=== PATIENT | male | born 1960 | race Caucasian/White ===

== ENCOUNTER 2021-02-16 09:33 | Emergency (ER) | payer OTHER ==
[2021-02-16 10:20] LABS: Absolute Lymphocytes (CBC) 1.4 K/uL (0.7-4.9); Basophils % 0.8 % (0-1.3); Hematocrit 37.1 % (39.6-49.0); Lymphocytes % 15.8 % (15.3-44.8); MPV 8.6 fL (7.6-11.3); RBC Red Blood Cell Count 4.22 M/uL (4.33-5.43)
[2021-02-16 10:41] LABS: Albumin 3.9 g/dL (3.4-5.0); Bilirubin Total 0.7 mg/dL (0.2-1.0); Potassium 4.3 mmol/L (3.5-5.1); Protein, Total 7.6 g/dL (6.4-8.2)
[2021-02-16] MEDS ORDERED: ONDANSETRON 4 MG/2 ML VIAL ONE (10:44)
[2021-02-16] MEDS ORDERED: HYDROMORPHONE HCL 1 MG/ML INJ ONE (10:44)
[2021-02-16] MEDS ORDERED: DIAZEPAM 10 MG/2 ML INJ SYRINGE ONE (10:45)
--- NOTE | 2021-02-16 11:03 | RAD REPORT ---
EXAM DESCRIPTION: MRI - C Spine Wo Cont - 02/16/2021 10:54 am CLINICAL HISTORY: Pain COMPARISON: None. TECHNIQUE: Sagittal T1-weighted, T2-weighted and T2-STIR sequences were obtained as well as axial T2 medic sequence obtained. FINDINGS: 2 millimeters of retrolisthesis of C4 on C5.Cervical vertebral bodies are normal in height and alignment. Mild endplate edema is present at the C4 level. Cerebellar tonsils and mid-line skull base show no suspicious finding. No significant finding at the C1 and C2 levels. C2-3 level: No significant findings. C3-4 level: Uncovertebral joint hypertrophy which is eccentric to the right results in moderate right and mild left neural foraminal narrowing. No central spinal stenosis . C4-5 level: Posterior disc osteophyte complex with uncovertebral joint hypertrophy results in severe left and mild right neural foraminal narrowing. The posterior disc osteophyte complex contacts the ve ntral aspect of the cord resulting in mild central spinal stenosis. C5-6 level: Posterior disc osteophyte complex with uncovertebral joint hypertrophy results in moderat e right and mild left neural foraminal narrowing. C7-T1 level: No significant findings. Cervical cord shows no focal narrowing, expansion or signal abnormality. IMPRESSION: Multilevel cervical spondylosis with varying degrees of neural foraminal narrowing as no brenda above. Mild central spinal stenosis is noted at the C4-5 level.
--- NOTE | 2021-02-16 11:26 | EDPHYS ---
Physician Documentation [facility] Name: Geovany Madrigal Age: 60 yrs Sex: Male : 1960 Arrival Date: 02/16/2021 Time: 09:42 Bed 19 Private MD: ED Physician Kulwinder Lynn HPI: 02/16 10:12 This 60 yrs old Unknown Male presents to ER via Ambulatory with complaints of Neck ma2 Pain, <24hrs Old. 10:12 The patient or guardian complains of pain, that is chronic. Onset: The symptoms/episode ma2 began/occurred suddenly, gradually, 1 day(s) ago. Associated signs and symptoms: Pertinent negatives: chills, constipation, fever, headache, bladder incontinence, bowel incontinence, nausea, numbness, tingling, vomiting, weakness. Severity of symptoms: At their worst the symptoms were moderate, in the emergency department the symptoms are unchanged. The patient has experienced similar episodes in the past. Historical: - Allergies: 09:51 No Known Allergies; ll1 - PMHx: 09:51 Hypertensive disorder; Hypothyroidism; ll1 - PSHx: 09:51 2 spine SX; ll1 - Immunization history:: Client reports receiving the 2nd dose of the Covid vaccine. - Social history:: Smoking status: Patient denies any tobacco usage or history of. Patient/guardian denies using alcohol, street drugs, The patient lives with family. - Family history:: not pertinent. - Hospitalizations: : No recent hospitalization is reported. ROS: 10:12 Constitutional: Negative for fever, chills, and weight loss. ma2 10:12 All other systems are negative. 10:12 Eyes: Negative for injury, pain, redness, and discharge, ENT: Negative for injury, ma2 pain, and discharge, Neck: Negative for injury, pain, and swelling, Cardiovascular: Negative for chest pain, palpitations, and edema, Respiratory: Negative for shortness of breath, cough, wheezing, and pleuritic chest pain, Abdomen/GI: Negative for abdominal pain, nausea, diarrhea, and constipation, Back: Negative for injury and pain, MS/Extremity: Negative for injury and deformity, Skin: Negative for injury, rash, and discoloration, Neuro: Negative for headache, weakness, numbness, tingling, and seizure, Psych: Negative for depression, anxiety, suicide ideation, homicidal ideation, and hallucinations, Allergy/Immunology: Negative for hives, rash, and allergies, Endocrine: Negative for neck swelling, polydipsia, polyuria, polyphagia, and marked weight changes. Exam: 10:12 Constitutional: This is a well developed, well nourished patient who is awake, alert, ma2 and in no acute distress. Head/Face: Normocephalic, atraumatic. Eyes: Pupils equal round and reactive to light, extra-ocular motions intact. Lids and lashes normal. Conjunctiva and sclera are non-icteric and not injected. Cornea within normal limits. Periorbital areas with no swelling, redness, or edema. ENT: Nares patent. No nasal discharge, no septal abnormalities noted. Tympanic membranes are normal and external auditory canals are clear. Oropharynx with no redness, swelling, or masses, exudates, or evidence of obstruction, uvula midline. Mucous membranes moist. Neck: Trachea midline, no thyromegaly or masses palpated, and no cervical lymphadenopathy. Supple, full range of motion without nuchal rigidity, or vertebral point tenderness. No Meningismus. Chest/axilla: Normal chest wall appearance and motion. Nontender with no deformity. No lesions are appreciated. Cardiovascular: Regular rate and rhythm with a normal S1 and S2. No gallops, murmurs, or rubs. Normal PMI, no JVD. No pulse deficits. Respiratory: Lungs have equal breath sounds bilaterally, clear to auscultation and percussion. No rales, rhonchi or wheezes noted. No increased work of breathing, no retractions or nasal flaring. Abdomen/GI: Soft, non-tender, with normal bowel sounds. No distension or tympany. No guarding or rebound. No evidence of tenderness throughout. Back: No spinal tenderness. No costovertebral tenderness. Full range of motion. Skin: Warm, dry with normal turgor. Normal color with no rashes, no lesions, and no evidence of cellulitis. MS/ Extremity: Pulses equal, no cyanosis. Neurovascular intact. Full, normal range of motion. Neuro: Awake and alert, GCS 15, oriented to person, place, time, and situation. Cranial nerves II-XII grossly intact. Motor strength 5/5 in all extremities. Sensory grossly intact. Cerebellar exam normal. Normal gait. Vital Signs: 09:49 BP 188 / 101; Pulse 60; Resp 16; Temp 97.3; Pulse Ox 100% ; Weight 83.91 kg; Height 5 ll1 ft. 10 in. (177.80 cm); Pain 6/10; 09:59 BP 188 / 101; Pulse 60; Resp 16; Temp 97.3; Pulse Ox 100% on R/A; Weight 83.46 kg; jw6 Height 5 ft. 10 in. (177.80 cm); Pain 10; 11:05 BP 160 / 98; Pulse 98; Pulse Ox 100% on R/A; jw6 09:59 Body Mass Index 26.40 (83.46 kg, 177.80 cm) jw6 MDM: 09:46 Patient medically screened. [facility] 10:12 Differential diagnosis: arthritis, Cervical Disc Herniation cervical strain, Unstable ma2 Vertebral Fracture. 11:25 Data reviewed: vital signs, nurses notes. Counseling: I had a detailed discussion with il2 the patient and/or guardian regarding: the historical points, exam findings, and any diagnostic results supporting the discharge/admit diagnosis, the presence of at least one elevated blood pressure reading (>120/80) during this emergency department visit, the need for outpatient follow up. Response to treatment: the patient's symptoms have markedly improved after treatment. 02/16 10:07 Order name: CBC with Diff; Complete Time: 11:08 [facility] 02/16 10:07 Order name: CMP; Complete Time: 11:08 [facility] 02/16 10:08 Order name: C Spine Wo Cont; Complete Time: 11:08 EDMS Administered Medications: 10:28 Drug: Dilaudid (HYDROmorphone) 1 mg Route: IVP; Site: right antecubital; jw6 10:28 Follow up: Response: No adverse reaction jw6 10:28 Drug: Zofran (Ondansetron) 4 mg Route: IVP; Site: right antecubital; jw6 10:28 Follow up: Response: No adverse reaction jw6 10:28 Drug: Valium (diazepam) 5 mg Route: IVP; Site: right antecubital; jw6 10:28 Follow up: Response: No adverse reaction jw6 Disposition Summary: 02/16/21 11:26 Discharge Ordered Location: Home ma2 Condition: Stable ma2 Diagnosis - Spinal stenosis, cervical region ma2 Followup: ma2 - With: Private Physician - When: Tomorrow - Reason: Continuance of care Discharge Instructions: - Discharge Summary Sheet ma2 - Spinal Stenosis ma2 Forms: - Medication Reconciliation Form ma2 - Thank You Letter ma2 - Antibiotic Education ma2 - Prescription Opioid Use ma2 Prescriptions: - Medrol (Terrence) 4 mg Oral Tablets, Dose Pack - take 1 tablet by ORAL route as directed - follow package instructions; 1 ma2 packet; Refills: 0, Product Selection Permitted - Valium 5 mg Oral Tablet - take 1 tablet by ORAL route every 8 hours As needed; 20 tablet; Refills: 0, ma2 Product Selection Permitted - Diclofenac Sodium 75 mg Oral Tablet Sustained Release - take 1 tablet by ORAL route 2 times per day; 30 tablet; Refills: 0, Product ma2 Selection Permitted Signatures: Dispatcher [employer] EDMS Kulwinder Lynn MD MD ma2 Reza Cardozo RN RN 1 Barb Mooney [facility]
--- NOTE | 2021-02-16 11:26 | ER ---
Nurse's Notes [facility] Name: Geovany Madrigal Age: 60 yrs Sex: Male : 1960 Arrival Date: 02/16/2021 Time: 09:42 Bed 19 Private MD: Diagnosis: Spinal stenosis, cervical region Presentation: 02/16 09:49 Chief complaint: Patient states: Neck pain and spasms, worse than his usual pain. ll1 Unable to turn neck, no fever. Coronavirus screen: Vaccine status: Patient reports receiving the 2nd dose of the covid vaccine. Client denies travel out of the [place] in the last 14 days. At this time, the client does not indicate any symptoms associated with coronavirus-19. Ebola Screen: Patient denies travel to an Ebola-affected area in the 21 days before illness onset. Acute neurological deficit: none identified. Initial Sepsis Screen: Does the patient meet any 2 criteria? No. Patient's initial sepsis screen is negative. Does the patient have a suspected source of infection? Yes: Bone or joint infection. Risk Assessment: Do you want to hurt yourself or someone else? Patient reports no desire to harm self or others. Onset of symptoms was February 15, 2021. 09:49 Method Of Arrival: Ambulatory ll1 09:49 Acuity: LILLIAN 3 ll1 Triage Assessment: 09:57 General: Appears uncomfortable, Behavior is cooperative. Pain: Complains of pain in jw6 posterior cervical area Pain does not radiate. Pain currently is 10 out of 10 on a pain scale. EENT: No deficits noted. Neuro: No deficits noted. Cardiovascular: No deficits noted. Respiratory: No deficits noted. GI: No deficits noted. : No deficits noted. Derm: No deficits noted. Musculoskeletal: No deficits noted. Historical: - Allergies: 09:51 No Known Allergies; ll1 - PMHx: 09:51 Hypertensive disorder; Hypothyroidism; ll1 - PSHx: 09:51 2 spine SX; ll1 - Immunization history:: Client reports receiving the 2nd dose of the Covid vaccine. - Social history:: Smoking status: Patient denies any tobacco usage or history of. Patient/guardian denies using alcohol, street drugs, The patient lives with family. - Family history:: not pertinent. - Hospitalizations: : No recent hospitalization is reported. Screenin:00 Abuse screen: Denies threats or abuse. Denies injuries from another. Nutritional jw6 screening: No deficits noted. Tuberculosis screening: No symptoms or risk factors identified. Fall Risk IV access (20 points). Assessment: 10:00 General: Appears uncomfortable, Behavior is calm, cooperative. Pain: Complains of pain jw6 in posterior cervical area. Neuro: Level of Consciousness is awake, alert, obeys commands, Oriented to person, place, time, situation, Supervisor Case Loading are equal bilaterally Moves all extremities. Full function Gait is steady, Speech is normal, Facial symmetry appears normal, Pupils are PERRLA, Intact Babinski. Cardiovascular: No deficits noted. Respiratory: No deficits noted. GI: No deficits noted. : No deficits noted. EENT: No deficits noted. Derm: No deficits noted. Musculoskeletal: No deficits noted. Vital Signs: 09:49 BP 188 / 101; Pulse 60; Resp 16; Temp 97.3; Pulse Ox 100% ; Weight 83.91 kg; Height 5 ll1 ft. 10 in. (177.80 cm); Pain 6/10; 09:59 BP 188 / 101; Pulse 60; Resp 16; Temp 97.3; Pulse Ox 100% on R/A; Weight 83.46 kg; jw6 Height 5 ft. 10 in. (177.80 cm); Pain 10/10; 11:05 BP 160 / 98; Pulse 98; Pulse Ox 100% on R/A; jw6 09:59 Body Mass Index 26.40 (83.46 kg, 177.80 cm) jw6 ED Course: 09:42 Patient arrived in ED. as 09:45 Kulwinder Lynn MD is Attending Physician. ma2 09:49 Arm band placed on Patient placed in an exam room, on a stretcher. ll1 09:51 Triage completed. ll1 09:57 Barb Mooney is Primary Nurse. jw6 10:00 Patient has correct armband on for positive identification. Bed in low position. Call jw6 light in reach. Side rails up X 1. 10:00 No provider procedures requiring assistance completed. jw6 10:04 Inserted saline lock: 20 gauge in right antecubital area, using aseptic technique. gd 10:53 C Spine Wo Cont In Process Unspecified. EDMS Administered Medications: 10:28 Drug: Dilaudid (HYDROmorphone) 1 mg Route: IVP; Site: right antecubital; jw6 10:28 Follow up: Response: No adverse reaction jw6 10:28 Drug: Zofran (Ondansetron) 4 mg Route: IVP; Site: right antecubital; jw6 10:28 Follow up: Response: No adverse reaction jw6 10:28 Drug: Valium (diazepam) 5 mg Route: IVP; Site: right antecubital; jw6 10:28 Follow up: Response: No adverse reaction jw6 Outcome: 11:26 Discharge ordered by MD. arredondo 11:37 Patient left the ED. jw6 Signatures: Dispatcher [employer] EDMS Marie Au Mohammad, MD MD ma2 Reza Cardozo RN RN Anuj Mccallum Jessica jw6
[2021-02-16 11:46] VITALS: TEMP 97.3; O2SAT 100
[2021-02-16 11:49] VITALS: BP 160/98
== END 2021-02-16 11:37 | disposition home or self-care (01) ==
LOC: ER 09:33
DX: M48.02 Spinal stenosis, cervical region (principal); I10 Essential (primary) hypertension
CPT/HCPCS: 85025; 36415; 80053; 72141; 96375; 96374; 99283; J3360; J1170; J2405

== ENCOUNTER 2023-10-16 10:25 | Day surgery (SDC) | payer OTHER ==
[2023-10-15 09:01] LABS: Absolute Basophils 0.1 K/uL (0-0.5); Absolute Eosinophils 0.2 K/uL (0-0.5); Absolute Lymphocytes (CBC) 1.7 K/uL (0.7-4.9); Absolute Monocytes 0.6 K/uL (0.1-1.3); Absolute Neutrophil 3.2 K/uL (1.8-8.0); Basophils % 1.2 % (0-1.3); Eosinophils % 4.2 % (0-4.4); Hematocrit 47.1 % (39.6-49.0); Hemoglobin 15.6 g/dL (13.6-17.9); Lymphocytes % 29.1 % (15.3-44.8); MCH 30.7 pg (27.0-35.0); MCHC 33.2 g/dL (32.0-36.0); MCV 92.6 fL (80-100); MPV 8.2 fL (7.6-11.3); Monocytes % 10.3 % (3.3-12.3); Neutrophils % 55.2 % (41.7-73.7); Nucleated Red Blood Cells % 0.1 % (0-0); Platelets 270 thou/uL (152-406); RBC Red Blood Cell Count 5.09 M/uL (4.33-5.43); Red Cell Distribution Width 12.8 % (12.1-15.2)
[2023-10-15 09:08] LABS: PT Prothrombin Time 9.9 SECONDS (9.4-12.5); PTT, Activated Partial Thromb 30.9 SECONDS (24.3-36.9); Protime INR 0.9
--- NOTE | 2023-10-15 09:14 | RAD REPORT ---
EXAM DESCRIPTION: Severiano Desai (2 Views)10/15/2023 8:56 am CLINICAL HISTORY: Preop for cardiac catheterization. Hypertension COMPARISON: None FINDINGS: The lungs appear clear of acute infiltrate. The heart is borderline enlarged IMPRESSION: No acute abnormalities displayed
[2023-10-15 09:24] LABS: Anion Gap 6.7 mEq/L (5.0-15.0); Potassium 4.7 mEq/L (3.5-5.1)
[2023-10-16] MEDS: NA CHLORIDE 0.9% 500 ML ONE (10:58)
[2023-10-16] MEDS ORDERED: HEPA 1000U/500MLS 2,000 UNIT/1,000 ML BAG IV ONE (12:13)
[2023-10-16] MEDS ORDERED: MIDAZOLAM HCL 2 MG/2 ML INJ ONE (12:14)
[2023-10-16] MEDS ORDERED: LIDOCAINE 1% 20 ML MDV ONE (12:14)
[2023-10-16] MEDS ORDERED: FENTANYL CITR 100 MCG/2 ML ONE (12:14)
[2023-10-16] MEDS ORDERED: VERAPAMIL HCL 10 MG/4 ML VIAL IV ONE (12:14)
[2023-10-16] MEDS ORDERED: TICAGRELOR 90 MG TABLET PO ONE (12:15)
[2023-10-16] MEDS ORDERED: ATROPINE SULF 1 MG/10 ML SYR IV ONE (12:15)
[2023-10-16] MEDS ORDERED: HEPARIN 10,000 UNIT/10 ML VIAL IV ONE (12:15)
[2023-10-16] MEDS ORDERED: HEPARIN 5000 UNIT/ML 1 ML VIAL ONE (12:15)
[2023-10-16] MEDS ORDERED: CLOPIDOGREL 75 MG TABLET ONE (12:15)
[2023-10-16] MEDS ORDERED: ASPIRIN 325 MG TAB ONE (12:16)
[2023-10-16 14:55] VITALS: TEMP 99.8
[2023-10-16 15:29] VITALS: O2SAT 99
[2023-10-16 15:47] VITALS: BP 175/87
--- NOTE | 2023-10-17 01:20 | OP ---
Date of Procedure: 10/16/2023 Surgeon: PAL ROCHA Procedures Performed: 1.Selective coronary angiogram. 2.Left heart catheterization. Indication: Unstable angina. Abnormal stress test. Access: Right radial artery 6-Dominican closed with TR band. Anesthesia: Total sedation time was 45 minutes. Used fentanyl and Versed. Complications: None. Bleeding: Less than 50 mL. Description Of Procedure: After risks, benefits, alternatives explained, the patient agreed to proce dure and signed informed consent. The patient was brought into cardiac catheterization laboratory, p repped and draped in the usual sterile fashion. Then, I accessed the right radial artery using pedPharmacopeia tric micropuncture kit and placed a 6-Dominican Slender sheath and took 5-Dominican [place] 4 catheter over a J wire into aortic root, crossed the aortic valve, measured the LVEDP, pullback did not require any gradient, then I engaged the left main, took standard views, and RCA, took standard views, and then r emoved the catheter and the sheath, placed TR band with good hemostasis. Findings: 1.Left main is large and normal. 2.LAD; ostial to proximal severe 90% stenosis, extends into the mid segment all the way to the diago nal 2 branch, it is 90% with 80% ostial disease of the diagonal 2 branch, rest of LAD is underfilled and smaller. 3.Left circumflex; diffuse severe proximal 90% stenosis. The OM has mid 70% stenosis. 4.RCA is very large and dominant with luminal irregularities. Mid segment 40% stenosis and distally , there is 60% stenosis and then the PDA is 100% occluded ostially with collaterals from the LAD. Th e PLB appears to be with luminal irregularities. 5.Elevated LVEDP at 20 mmHg. Conclusions: 1.Severe multivessel coronary artery disease. 2.Elevated LVEDP. Recommendations: Consult CT Surgery for CABG. SR/MODL Voice ID: [id number] Report ID: [id number]
== END 2023-10-16 15:46 | disposition home or self-care (01) ==
LOC: CCL 10:25
PROVIDERS: ATTEND Internal Medicine
DX: I25.110 Atherosclerotic heart disease of native coronary artery with unstable angina pectoris (principal); I25.82 Chronic total occlusion of coronary artery; I34.0 Nonrheumatic mitral (valve) insufficiency; I35.1 Nonrheumatic aortic (valve) insufficiency; I10 Essential (primary) hypertension; E78.5 Hyperlipidemia, unspecified; F17.290 Nicotine dependence, other tobacco product, uncomplicated; Z79.82 Long term (current) use of aspirin; Z79.899 Other long term (current) drug therapy
CPT/HCPCS: 85025; 80048; 36415; 83721; 85610; 85730; 71046; 93458; 76937; C1893; Q9966; J1644; J2001; J2250; J3010; J7040; 99152; 99153; J0461